=== PATIENT | male | born 1970 | race Caucasian/White ===

== ENCOUNTER 2019-06-27 00:24 | Emergency (ER) | payer SELFPAY ==
[2019-06-27 00:34] VITALS: PULSE 113; RESP 18; TEMP 36.8; O2SAT 100; BMI 20.9
[2019-06-27 01:52] VITALS: BP 150/102; PULSE 106; RESP 18; O2SAT 99
--- NOTE | 2019-06-27 02:02 | ED_ITS ---
HPI - Extremity Problem General: Chief complaint: Extremity Injury, Lower Stated complaint: L ANKLE SWELLING Time Seen by Provider: 06/27/19 02:02 History of Present Illness: HPI Narrative: Patient is a 49-year-old male who comes into the ED with left ankle and foot pain and swelling. Patient claims that he stubbed his toe about 5 to 6 days ago and ever since then he is having some pain and swelling in both his left foot and left ankle. Associated symptoms: Deny chest pain, fever(s) or rash Review of Systems Const: Denies: fever, chills or fatigue Eyes: Denies: change in vision or eye discomfort ENMT: Denies: throat pain, painful swallowing, nasal discharge or nasal congestion Card: Denies: chest pain, palpitations, edema, swelling of feet/ankles, shortness of breath on exertion or shortness of breath when lying down Resp: Denies: shortness of breath, productive cough or non-productive cough GI: Denies: abdominal pain, nausea, vomiting, diarrhea, constipation or blood in stool : Denies: flank pain, difficulty urinating, painful urination or blood in urine Musc: Reports: extremity pain (left foot and ankle) and extremity swelling (left ankle and foot); Denies: neck pain or back pain Skin/Breast: Denies: rash or new lesion Neuro: Denies: headache, numbness in extremities or weakness in extremities PFSH ED PFSH: Social History Smoking and tobacco status: current every day smoker Physical Exam Const: COMMON NORMALS: oriented x3 HENMT: COMMON NORMALS: normocephalic HEAD & SCALP: normocephalic MOUTH: oral and palatal mucosa normal THROAT: posterior oropharynx normal and uvula midline Neck/C-Spine: COMMON NORMALS: supple GENERAL: Yes normal visual inspection Resp: COMMON NORMALS: normal respiratory effort, no retractions, no use of accessory muscles and clear to auscultation bilaterally AUSCULTATION: clear to auscultation bilaterally Cardio: COMMON NORMALS: regular rate, regular rhythm, S1 normal heart sound, S2 normal heart sound, no gallops, no clicks, no murmurs and peripheral pulses 2+ throughout RATE: regular rate RHYTHM: regular rhythm HEART SOUNDS: S1 normal and S2 normal PERIPHERAL PULSES: pulses 2+ throughout GI: COMMON NORMALS: normal to inspection, nondistended, normoactive bowel sounds, soft to palpation, non-tender and no masses PALPATION: Yes soft : COMMON NORMALS: Yes no CVA tenderness BLADDER/KIDNEY EXAM: Yes no CVA tenderness Back/Pelvis: COMMON NORMALS: no CVA tenderness Extremity: LEFT LOWER EXTREMITY: Yes foot & digits Left foot and digits: Yes inspection (normal, no swelling), Yes ROM (full but does cause some pain) and Yes neurovascular exam (intact) Neuro: COMMON NORMALS: oriented x3 and moves all extremities Skin: COMMON NORMALS: no rashes or lesions noted (Patient had a callus on the bottom of his left foot that he was recently seen wound clinic for. He has since been released by wound clinic and they told him that the foot wound was healed. He is having no complications with wound on bottom of foot.) GENERAL SKIN EXAM: no rashes or lesions noted (Patient had a callus on the bottom of his left foot that he was recently seen wound clinic for. He has since been released by wound clinic and they told him that the foot wound was healed. He is having no complications with wound on bottom of foot.) Course Vital Signs: Vital signs: Vital Signs Temperature 98.2 F 06/27/19 00:34 Pulse Rate 88 06/27/19 04:27 Respiratory Rate 18 06/27/19 04:27 Blood Pressure 126/88 06/27/19 04:27 Pulse Oximetry 99 06/27/19 04:27 MDM - Extremity (Nontraumatic) Imaging Data^: Xray Ortho: Attestation: I personally reviewed and interpreted this imaging study as follows: Radiologist's impression: Reason: pain [address] [place] [address] XRay Report Signed Patient: Fredi Dasilva Unit #: [id number] : 1970 Age/Sex: 49 / M ADM Date: 06/27/19 Loc: ER Room/Bed: Attending Dr: Ordering Provider/Ordering MD: Socrates Acevedo Date of Service: 06/27/19 Procedure(s): XR foot LT min 3V* 73119 Accession Number(s): [id number] Report Number: [id number] PROCEDURE INFORMATION: Exam: XR Left Foot Complete Exam date and time: 06/27/2019 2:41 AM Age: 49 years old Clinical indication: Pain; Toes; Left TECHNIQUE: Imaging protocol: XR Left foot. Views: 3 or more views. COMPARISON: No relevant prior studies available. FINDINGS: Bones/joints: Alignment is normal. There is no acute fracture. Mild DJD at the ankle. Possible erosion at the base of the 1st metatarsal at the tarsometatarsal joint. Soft tissues: Normal. XR/XR foot LT min 3V* [id number] IMPRESSION: 1. No acute fracture. 2. Possible erosion versus subchondral cysts at the base of the 1st metatarsal. Dictated By: Mega Pizano MD Signed By: Mega Pizano MD Signed Date/Time: 06/27/19 0409 DD/ [address] [address] XRay Report Signed Patient: Fredi Dasilva Unit #: [id number] : 1970 Age/Sex: 49 / M ADM Date: 06/27/19 Loc: ER Room/Bed: Attending Dr: Ordering Provider/Ordering MD: Socrates Acevedo Date of Service: 06/27/19 Procedure(s): XR ankle LT 2V 65126 Accession Number(s): [id number] Report Number: [id number] PROCEDURE INFORMATION: Exam: XR Left Ankle Exam date and time: 06/27/2019 2:39 AM Age: 49 years old Clinical indication: Pain; Swelling, leg or foot; Ankle; Left; Additional info: Injury and pain TECHNIQUE: Imaging protocol: XR Left ankle. Views: 1 or 2 views. COMPARISON: No relevant prior studies available. FINDINGS: Bones/joints: Alignment is normal. There are small anterior tibial osteophytes. There are small osteophytes at the calcaneocuboid joint. There is no acute fracture. Soft tissues: Normal. XR/XR ankle LT 2V 06105 IMPRESSION: No acute fracture. Dictated By: Mega Pizano MD Signed By: Mega Pizano MD Signed Date/Time: 06/27/19 0411 DD/ 9 Discharge Plan Discharge Patient Disposition: Home, Self-Care Clinical Impression: Pain in left lower leg Condition: Stable Discharge Orders: Discharge Order (Routine); Ordered 06/27/19 Ordered By: Socrates Acevedo Referrals: Luis Alberto Donahue DO [Family Provider] - Keith Garcia MD [Primary Care Provider] - Discharge Diet: Regular Discharge Activity: Resume usual activity Activity Restrictions/Additional Instructions: Follow-up with your PCP in 5 to 7 days for reevaluation. You can take Tylenol or ibuprofen to help with any leg pain. You can return to the ED if symptoms continue to worsen. Discharge Date/Time: 06/27/19 04:27 Coding Level of Care Code ED [facility] Exam Comprehensive
--- NOTE | 2019-06-27 02:12 | XRR_ITS ---
PROCEDURE INFORMATION: Exam: XR Left Foot Complete Exam date and time: 06/27/2019 2:41 AM Age: 49 years old Clinical indication: Pain; Toes; Left TECHNIQUE: Imaging protocol: XR Left foot. Views: 3 or more views. COMPARISON: No relevant prior studies available. FINDINGS: Bones/joints: Alignment is normal. There is no acute fracture. Mild DJD at the ankle. Possible erosion at the base of the 1st metatarsal at the tarsometatarsal joint. Soft tissues: Normal. XR/XR foot LT min 3V* [id number] IMPRESSION: 1. No acute fracture. 2. Possible erosion versus subchondral cysts at the base of the 1st metatarsal.
--- NOTE | 2019-06-27 02:12 | XRR_ITS ---
PROCEDURE INFORMATION: Exam: XR Left Ankle Exam date and time: 06/27/2019 2:39 AM Age: 49 years old Clinical indication: Pain; Swelling, leg or foot; Ankle; Left; Additional info: Injury and pain TECHNIQUE: Imaging protocol: XR Left ankle. Views: 1 or 2 views. COMPARISON: No relevant prior studies available. FINDINGS: Bones/joints: Alignment is normal. There are small anterior tibial osteophytes. There are small osteophytes at the calcaneocuboid joint. There is no acute fracture. Soft tissues: Normal. XR/XR ankle LT 2V [id number] IMPRESSION: No acute fracture.
[2019-06-27] MEDS: ketorolac 30 mg/mL INJ IM (02:24)
[2019-06-27 03:02] VITALS: BP 150/102; PULSE 68; RESP 18; O2SAT 98
[2019-06-27 04:27] VITALS: BP 126/88; PULSE 88; RESP 18; O2SAT 99
== END 2019-06-27 04:27 | disposition home or self-care (01) ==
PROVIDERS: Emergency Provider Physician Assistant; Family Provider Family Medicine; PCP Internal Medicine
DX: M79.662 Pain in left lower leg (principal); F17.200 Nicotine dependence, unspecified, uncomplicated
CPT/HCPCS: 12345; 73600; 73630; 96372; 99281; 99283; J1885